=== PATIENT | female | born 1950 | race Caucasian/White ===

== ENCOUNTER 2024-09-09 14:30 | Day surgery (SDC) | payer MEDICARE ==
[2024-09-09] MEDS ORDERED: PROPOFOL 200 MG/20 ML VIAL ONE (14:40)
[2024-09-09] MEDS ORDERED: Lidocaine Viscous Sol 2% 15 ml UD Cup SSW SCH (17:15)
== END 2024-09-09 17:51 | disposition home or self-care (01) ==
LOC: SDC 14:30
PROVIDERS: ATTEND Internal Medicine Gastroenterology
PROC: 0DBN8ZZ Excision of Sigmoid Colon, Via Natural or Artificial Opening Endoscopic (ICD-10-PCS; principal; 2024-09-09)
PROC: 0DB58ZX Excision of Esophagus, Via Natural or Artificial Opening Endoscopic, Diagnostic (ICD-10-PCS; 2024-09-09)
DX: D12.5 Benign neoplasm of sigmoid colon (principal); D64.9 Anemia, unspecified; K22.70 Barrett's esophagus without dysplasia; K20.90 Esophagitis, unspecified without bleeding; K29.50 Unspecified chronic gastritis without bleeding; K43.2 Incisional hernia without obstruction or gangrene; K26.7 Chronic duodenal ulcer without hemorrhage or perforation; I10 Essential (primary) hypertension; J44.9 Chronic obstructive pulmonary disease, unspecified; J40 Bronchitis, not specified as acute or chronic; Z88.0 Allergy status to penicillin
CPT/HCPCS: 43239; 45385; C1889; J2704; 88305